=== PATIENT | male | born 1960 | race Caucasian/White ===

== ENCOUNTER 2023-03-20 00:28 | Emergency (ER) | payer MEDICAID ==
[~2023-03-20] VITALS: Ht 182.9 cm; Wt 100.0 kg
[2023-03-20 00:37] VITALS: TEMP 98.1
[2023-03-20] MEDS ORDERED: AMOX-117 PO (01:09)
[2023-03-20] MEDS ORDERED: amox tr/potassium clavulanate 875/125mg TAB PO ONE ×2 (01:10→01:30)
[2023-03-20] MEDS ORDERED: TETanus/Pertussis (Acell)/Diphther VAC/PF (Tdap-Adult) 0.5ml syringe IMVAC ONE (01:10)
[2023-03-20 02:00] VITALS: BP 152/99; PULSE 83; RESP 16; O2SAT 98
== END 2023-03-20 02:13 | disposition home or self-care (01) ==
LOC: ER 00:28
DX: R23.4 Changes in skin texture (principal); S61.401A Unspecified open wound of right hand, initial encounter; W55.01XA Bitten by cat, initial encounter; Y93.89 Activity, other specified; Y92.89 Other specified places as the place of occurrence of the external cause; Y99.8 Other external cause status; Z79.899 Other long term (current) drug therapy
CPT/HCPCS: 90471; 90715; 99283

== ENCOUNTER 2023-12-27 17:16 | Inpatient (IN) | payer MEDICAID ==
[~2023-12-27] VITALS: Ht 185.4 cm; Wt 100.9 kg
[2023-12-27 18:38] LABS: BASOPHILS # (AUTO) 0.1 X10'3 (0-0.2); BASOPHILS % (AUTO) 1.2 % (0-1); EOSINOPHILS # (AUTO) 0.2 X10'3 (0-0.9); EOSINOPHILS % (AUTO) 2.7 % (0-6); HEMATOCRIT 46.7 % (42.0-52.0); HEMOGLOBIN 16.3 g/dl (14.0-17.9); LYMPHOCYTES # (AUTO) 2.3 X10'3 (1.1-4.8); LYMPHOCYTES % (AUTO) 33.2 % (21-51); MEAN CORPUSCULAR HEMOGLOBIN 32.9 PG (27.0-31.0); MEAN CORPUSCULAR HGB CONC 34.9 g/dL (33.0-36.5); MEAN CORPUSCULAR VOLUME 94.3 FL (78-98); MEAN PLATELET VOLUME 7.8 FL (7.4-10.4); MONOCYTES % (AUTO) 14.8 % (2-12); NEUTROPHILS # (AUTO) 3.3 X10'3 (1.8-7.7); NEUTROPHILS % (AUTO) 48.1 % (42-75); PLATELET COUNT 332 X10'3 (140-440); RED BLOOD COUNT 4.95 X10'6 (4.70-6.10); RED CELL DISTRIBUTION WIDTH 13.1 % (11.5-14.5); WHITE BLOOD COUNT 6.8 X10'3 (4.5-11.0)
[2023-12-27 18:48] LABS: ALBUMIN 3.2 G/DL (3.4-5.0); ANION GAP 8 (8-16); BLOOD UREA NITROGEN 13 MG/DL (7-18); BUN/CREATININE RATIO 15.3 (10.0-20.0); CALCIUM 9.1 MG/DL (8.5-10.1); CHLORIDE 100 MMOL/L (99-107); CREATININE 0.85 MG/DL (0.60-1.10); GLUCOSE 107 MG/DL (70-104); POTASSIUM 3.8 MMOL/L (3.5-5.1); SODIUM 134 MMOL/L (135-145); TOTAL CARBON DIOXIDE 26.4 MMOL/L (24-32); eCRCL 102 ML/MIN; eGFR > 90 ML/MIN
[2023-12-27 18:53] LABS: APTT 28 SECONDS (22-32); PROTHROMBIN TIME 10.9 SECONDS (9.0-12.0)
[2023-12-27] MEDS: clopidogrel 300mg tablet PO ONE (20:45)
[2023-12-27] MEDS ORDERED: ondansetron/PF 4mg/2ml inj IV PRN (20:45)
[2023-12-27] MEDS ORDERED: potassium Cl 40MEQ/1/2NS 520ml 520 ML IV PRN (20:45)
[2023-12-27] MEDS: PERFLUTREN PROTEIN-A MICROSPHR (Optison) 0.22 MG/ML 3ML VIAL IV ONE (20:45)
[2023-12-27] MEDS ORDERED: potassium Cl 20 mEq SR tablet PO PRN ×2 (20:45)
[2023-12-27] MEDS: aspirin 325mg tablet PO ONE (20:45)
[2023-12-27] MEDS ORDERED: magnesium sulf-water 2g/50mL 50 ML IV PRN (20:45)
[2023-12-27] MEDS ORDERED: magnesium sulf-water 4G/100mL 100 ML IV PRN (20:45)
[2023-12-27] MEDS ORDERED: acetaminophen 325mg tablet PO PRN (20:45)
[2023-12-27] MEDS ORDERED: magnesium Cl slow-release 64mg tablet PO PRN (20:45)
[2023-12-27] MEDS: atorvastatin 20mg tablet PO SCH (20:55)
[2023-12-27] MEDS ORDERED: iohexol 350MG/ML 100ml bottle IV ONE ×2 (21:04→22:59)
[2023-12-27] MEDS: normal saline 1000ml 1,000 ML IV ONE (21:06)
[2023-12-27 21:07] LABS: HEMOGLOBIN A1C 4.7 % (4.5-6.2)
[2023-12-27 21:52] LABS: THYROID STIMULATING HORMONE 1.91 ulU/ml (0.34-4.50)
[2023-12-27] MEDS: aspirin 300mg supp.rect RC ONE (23:26)
[2023-12-28 01:39] LABS: BILIRUBIN,URINE NEGATIVE (Neg); CLARITY,URINE SLIGHTLY CLOUDY (Clear); COLOR,URINE YELLOW (Yellow); GLUCOSE, URINE NEGATIVE (Neg); KETONES,URINE NEGATIVE (Neg); LEUKOCYTE ESTERASE ,URINE TRACE (Neg); NITRITES, URINE POSITIVE (Neg); OCCULT BLOOD,URINE TRACE-INTACT (Neg); PH,URINE 6.5 (4.8-8.0); PROTEIN,URINE NEGATIVE (Neg); UROBILINOGEN,URINE 0.2 E.U/dL (0.2-1.0)
[2023-12-28 01:45] LABS: UA COLLECTION TYPE CLN CATCH MIDSTREAM
[2023-12-28 01:46] LABS: WBC CLUMPS,URINE FEW /HPF (NEGATIVE); WBC,URINE 30-50 /HPF (0-4)
[2023-12-28 01:47] LABS: BACTERIA,URINE FEW /HPF (Neg); MUCUS STRANDS NONE SEEN /LPF (Neg); RBC,URINE 0-2 /HPF (0-2); SQUAMOUS EPITHELIAL CELL,UR NONE SEEN /LPF (FEW)
[2023-12-28 01:55] LABS: URINE AMPHETAMINE SCREEN POSITIVE (Neg); URINE BARBITUATE SCREEN NEGATIVE (Neg); URINE BENZODIAZEPINES SCREEN NEGATIVE (Neg); URINE CANNABINOID SCREEN POSITIVE (Neg); URINE COCAINE SCREEN NEGATIVE (Neg); URINE METHADONE SCREEN NEGATIVE (Neg); URINE OPIATE SCREEN NEGATIVE (Neg); URINE PHENCYCLIDINE SCREEN NEGATIVE (Neg)
[2023-12-28] MEDS ORDERED: NO HOME MEDS (03:07)
[2023-12-28] MEDS: K and/or MAG REPLACEMENT MC SCH (08:00)
[2023-12-28] MEDS ORDERED: clopidogrel 75mg tablet PO SCH (08:00)
[2023-12-28] MEDS ORDERED: aspirin 81mg, enteric-coated 1 TAB TABLET.DR PO SCH (08:00)
[2023-12-28] MEDS ORDERED: atorvastatin 20mg tablet PO ONE (08:25)
[2023-12-28 08:41] LABS: BASOPHILS # (AUTO) 0.1 X10'3 (0-0.2); EOSINOPHILS # (AUTO) 0.2 X10'3 (0-0.9); EOSINOPHILS % (AUTO) 2.4 % (0-6); HEMATOCRIT 41.9 % (42.0-52.0); HEMOGLOBIN 14.7 g/dl (14.0-17.9); LYMPHOCYTES # (AUTO) 2.5 X10'3 (1.1-4.8); LYMPHOCYTES % (AUTO) 33.3 % (21-51); MEAN CORPUSCULAR HEMOGLOBIN 32.7 PG (27.0-31.0); MEAN CORPUSCULAR VOLUME 93.3 FL (78-98); MEAN PLATELET VOLUME 7.8 FL (7.4-10.4); NEUTROPHILS # (AUTO) 3.7 X10'3 (1.8-7.7); NEUTROPHILS % (AUTO) 49.3 % (42-75); PLATELET COUNT 279 X10'3 (140-440); RED BLOOD COUNT 4.49 X10'6 (4.70-6.10); RED CELL DISTRIBUTION WIDTH 12.9 % (11.5-14.5); WHITE BLOOD COUNT 7.5 X10'3 (4.5-11.0)
[2023-12-28 08:58] LABS: ALANINE AMINOTRANSFERASE 53 U/L (12-78); ALBUMIN 2.9 G/DL (3.4-5.0); ALBUMIN/GLOBULIN RATIO 0.6 (1.1-1.5); ALKALINE PHOSPHATASE 128 IU/L (46-116); ANION GAP 7 (8-16); ASPARTATE AMINO TRANSFERASE 61 U/L (10-37); BILIRUBIN,TOTAL 0.9 MG/DL (0.1-1.0); BLOOD UREA NITROGEN 9 MG/DL (7-18); BUN/CREATININE RATIO 11.7 (10.0-20.0); CALCIUM 8.5 MG/DL (8.5-10.1); CHLORIDE 102 MMOL/L (99-107); CHOL/HDL RATIO 3.2 (0.00-4.99); CHOLESTEROL 123 MG/DL (0-200); CREATININE 0.77 MG/DL (0.60-1.10); GLUCOSE 97 MG/DL (70-104); HDL CHOLESTEROL 39 MG/DL (35-60); LDL CHOLESTEROL 69 MG/DL (50-100); POTASSIUM 3.7 MMOL/L (3.5-5.1); SODIUM 134 MMOL/L (135-145); TOTAL CARBON DIOXIDE 25.3 MMOL/L (24-32); TOTAL PROTEIN 7.6 G/DL (6.4-8.2); TRIGLYCERIDES 106 MG/DL (20-135); eCRCL 112 ML/MIN; eGFR > 90 ML/MIN
[2023-12-28] MEDS: atorvastatin 20mg tablet PO SCH (09:12)
[2023-12-28] MEDS: clopidogrel 300mg tablet PO ONE (09:12)
[2023-12-28] MEDS: aspirin 81mg tab.chew PO ONE (09:12)
[2023-12-28] MEDS: CefTRIAXone 2gm/D5W 50ml BAG 50 ML IV SCH (09:13)
[2023-12-28 15:50] VITALS: RESP 14
[2023-12-28 16:23] VITALS: BP 132/92; PULSE 67; RESP 16; TEMP 97.7; O2SAT 95
[2023-12-28 18:00] VITALS: BP 154/105; PULSE 65; RESP 16; TEMP 97.5; O2SAT 97
[2023-12-28] MEDS ORDERED: normal saline 1000ml 1,000 ML IV SCH (18:05)
[2023-12-28] MEDS ORDERED: nicotine 21mg patch - 24 hr TD SCH (18:55)
[2023-12-28 20:00] VITALS: RESP 16; O2SAT 97
[2023-12-28] MEDS: heparin, porcine 5000 units/ml vial SQ SCH (20:27)
[2023-12-28] MEDS: nicotine 21mg patch - 24 hr TD SCH (20:28)
[2023-12-28] MEDS: normal saline 1000ml 1,000 ML IV SCH (20:38)
[2023-12-28 22:00] VITALS: BP 144/91; PULSE 74; RESP 15; TEMP 98; O2SAT 95
[2023-12-29 07:00] LABS: BASOPHILS # (AUTO) 0.1 X10'3 (0-0.2); BASOPHILS % (AUTO) 1.3 % (0-1); EOSINOPHILS # (AUTO) 0.2 X10'3 (0-0.9); EOSINOPHILS % (AUTO) 2.2 % (0-6); HEMATOCRIT 42.9 % (42.0-52.0); LYMPHOCYTES # (AUTO) 2.4 X10'3 (1.1-4.8); MEAN CORPUSCULAR HEMOGLOBIN 32.8 PG (27.0-31.0); MEAN CORPUSCULAR HGB CONC 34.9 g/dL (33.0-36.5); MEAN CORPUSCULAR VOLUME 93.8 FL (78-98); MEAN PLATELET VOLUME 7.6 FL (7.4-10.4); MONOCYTES % (AUTO) 14.6 % (2-12); NEUTROPHILS # (AUTO) 3.5 X10'3 (1.8-7.7); NEUTROPHILS % (AUTO) 48.9 % (42-75); PLATELET COUNT 270 X10'3 (140-440); RED BLOOD COUNT 4.57 X10'6 (4.70-6.10); RED CELL DISTRIBUTION WIDTH 12.9 % (11.5-14.5); WHITE BLOOD COUNT 7.1 X10'3 (4.5-11.0)
[2023-12-29 07:21] VITALS: BP 166/98; PULSE 68; RESP 16; TEMP 97.8; O2SAT 93
[2023-12-29 07:40] LABS: ALANINE AMINOTRANSFERASE 53 U/L (12-78); ALBUMIN 2.8 G/DL (3.4-5.0); ALBUMIN/GLOBULIN RATIO 0.6 (1.1-1.5); ALKALINE PHOSPHATASE 125 IU/L (46-116); ANION GAP 7 (8-16); ASPARTATE AMINO TRANSFERASE 73 U/L (10-37); BILIRUBIN,TOTAL 0.8 MG/DL (0.1-1.0); BLOOD UREA NITROGEN 10 MG/DL (7-18); BUN/CREATININE RATIO 11.8 (10.0-20.0); CALCIUM 8.6 MG/DL (8.5-10.1); CHLORIDE 101 MMOL/L (99-107); CREATININE 0.85 MG/DL (0.60-1.10); GLUCOSE 94 MG/DL (70-104); POTASSIUM 3.7 MMOL/L (3.5-5.1); SODIUM 133 MMOL/L (135-145); TOTAL CARBON DIOXIDE 24.8 MMOL/L (24-32); TOTAL PROTEIN 7.2 G/DL (6.4-8.2); eCRCL 102 ML/MIN; eGFR > 90 ML/MIN
[2023-12-29 08:00] VITALS: RESP 16; O2SAT 93
[2023-12-29] MEDS: aspirin 81mg tab.chew PO SCH (08:05)
[2023-12-29] MEDS: clopidogrel 75mg tablet PO SCH (08:05)
[2023-12-29] MEDS ORDERED: ASPI81TA53 PO (10:54)
[2023-12-29] MEDS ORDERED: CLOP75TA34 PO (10:54)
[2023-12-29] MEDS ORDERED: ATOR20TA66 PO (10:54)
[2023-12-29 13:30] VITALS: BP 137/96; PULSE 106; RESP 18; O2SAT 96
[2023-12-29] MEDS ORDERED: CEFD300C3 PO (17:05)
[2023-12-29] MEDS ORDERED: atorvastatin 20mg tablet PO SCH (21:00)
== END 2023-12-29 14:10 | disposition home health service (06) | DRG 45 ==
LOC: ER 17:17 → ED HOLD 20:50 → ORTHO 4S 12-28 14:40
PROVIDERS: ADMIT Internal Medicine Pulmonary Disease; ATTEND Nurse Practitioner Family
PROC: B3251ZZ Computerized Tomography (CT Scan) of Bilateral Common Carotid Arteries using Low Osmolar Contrast (ICD-10-PCS; principal; 2023-12-27)
PROC: B32G1ZZ Computerized Tomography (CT Scan) of Bilateral Vertebral Arteries using Low Osmolar Contrast (ICD-10-PCS; 2023-12-27)
PROC: B3281ZZ Computerized Tomography (CT Scan) of Bilateral Internal Carotid Arteries using Low Osmolar Contrast (ICD-10-PCS; 2023-12-27)
DX: I63.81 Other cerebral infarction due to occlusion or stenosis of small artery (principal); I10 Essential (primary) hypertension; N39.0 Urinary tract infection, site not specified; R29.703 NIHSS score 3; Z96.651 Presence of right artificial knee joint; Z87.891 Personal history of nicotine dependence
CPT/HCPCS: 36415; 70450; 70496; 70498; 70551; 71045; 80048; 80053; 80061; 80305; 81001; 83036; 84443; 85025; 85610; 85730; 87081; 92508; 92616; 93005; 93306; 97116; 97161; 97530; 99285; A6590; G0378; J0696; J1644; J7030; Q9967

== ENCOUNTER 2024-02-07 18:38 | Emergency (ER) | payer MEDICAID ==
[~2024-02-07] VITALS: Ht 182.9 cm; Wt 96.0 kg
[~2024-02-07 18:38] MED LIST: ASPI81TA53 PO; ATOR20TA66 PO; CEFD300C3 PO; CLOP75TA34 PO
[2024-02-07 19:05] VITALS: BP 115/75; PULSE 83; O2SAT 94
[2024-02-07 20:05] LABS: BASOPHILS # (AUTO) 0.1 X10'3 (0-0.2); BASOPHILS % (AUTO) 0.5 % (0-1); EOSINOPHILS # (AUTO) 0.1 X10'3 (0-0.9); EOSINOPHILS % (AUTO) 0.8 % (0-6); HEMATOCRIT 51.3 % (42.0-52.0); HEMOGLOBIN 17.9 g/dl (14.0-17.9); LYMPHOCYTES # (AUTO) 1.7 X10'3 (1.1-4.8); LYMPHOCYTES % (AUTO) 12.3 % (21-51); MEAN CORPUSCULAR HEMOGLOBIN 32.9 PG (27.0-31.0); MEAN CORPUSCULAR HGB CONC 34.9 g/dL (33.0-36.5); MEAN CORPUSCULAR VOLUME 94.1 FL (78-98); MEAN PLATELET VOLUME 7.7 FL (7.4-10.4); MONOCYTES # (AUTO) 1.4 X10'3 (0-0.9); MONOCYTES % (AUTO) 10.1 % (2-12); NEUTROPHILS # (AUTO) 10.6 X10'3 (1.8-7.7); NEUTROPHILS % (AUTO) 76.3 % (42-75); PLATELET COUNT 289 X10'3 (140-440); RED BLOOD COUNT 5.46 X10'6 (4.70-6.10); RED CELL DISTRIBUTION WIDTH 13.3 % (11.5-14.5); WHITE BLOOD COUNT 13.9 X10'3 (4.5-11.0)
[2024-02-07] MEDS: normal saline 1000ml 1,000 ML IV ONE (20:21)
[2024-02-07 20:27] LABS: ALBUMIN 3.4 G/DL (3.4-5.0); ANION GAP 9 (8-16); BLOOD UREA NITROGEN 16 MG/DL (7-18); BUN/CREATININE RATIO 17.4 (10.0-20.0); CALCIUM 9.4 MG/DL (8.5-10.1); CHLORIDE 102 MMOL/L (99-107); CREATININE 0.92 MG/DL (0.60-1.10); GLUCOSE 130 MG/DL (70-104); MAGNESIUM 2.1 MG/DL (1.5-2.4); PRO BRAIN NATRIURETIC PEPTIDE 50 PG/ML (0-125); SODIUM 139 MMOL/L (135-145); TOTAL CARBON DIOXIDE 27.6 MMOL/L (24-32); eCRCL 90 ML/MIN; eGFR 83 ML/MIN
[2024-02-07 20:29] LABS: POTASSIUM 4.2 MMOL/L (3.5-5.1)
[2024-02-07 22:06] VITALS: TEMP 97.5
[2024-02-07 22:15] VITALS: RESP 15
== END 2024-02-07 22:11 | disposition home or self-care (01) ==
LOC: ER 18:39
DX: R55 Syncope and collapse (principal); M19.90 Unspecified osteoarthritis, unspecified site; Z79.82 Long term (current) use of aspirin; Z79.899 Other long term (current) drug therapy
CPT/HCPCS: 36415; 71045; 80048; 83735; 83880; 84484; 85025; 93005; 96360; 96361; 99285; J7030